=== PATIENT | male | born 1965 | race Caucasian/White ===

== ENCOUNTER 2018-02-03 11:31 | Inpatient (IN) | payer BC ==
--- NOTE | 2018-02-03 11:42 | EDM.PDOC ---
ED HPI GENERAL MEDICAL PROBLEM - General Stated Complaint: [facility] Time Seen by Provider: 02/03/18 11:31 Source of Information: Reports: Patient, EMS History Limitations: Reports: No Limitations - History of Present Illness INITIAL COMMENTS - FREE TEXT/NARRATIVE: A trauma alert was called on this patient. According to EMS, and confirmed by the patient, the patient was bucked off a horse onto packed dirt around 10:45. He landed on his right back. EMS stated that the patient just remained there, that he did not try to get up. His fall was witnessed. There was no loss of consciousness. The patient presents with right back and right shoulder pain. He denies neck pain. He was given Dilaudid 1 mg and Zofran 4 mg en route. The patient does not have a PCP. Right Shoulder Pain Score (Numeric/FACES): 6 - Related Data Allergies Allergy/AdvReac Type Severity Reaction Status Date / Time No Known Allergies Allergy Verified 02/03/18 11:38 Home Meds: Home Meds . [No Known Home Meds] 02/03/18 [History] Past Medical History Cardiovascular History: Reports: Blood Clots/VTE/DVT (following knee arthroscopy ) Endocrine/Metabolic History: Reports: Obesity/BMI 30+ - Past Surgical History GI Surgical History: Reports: Colonoscopy Musculoskeletal Surgical History: Reports: Arthroscopic Knee (right) Social & Family History - Tobacco Use Smoking Status *Q: Never Smoker Tobacco Use Within Last Twelve Months: Smokeless Tobacco (Chews 1/4 can/day) - Alcohol Use Alcohol Use History: Yes Alcohol Use Frequency: Socially - Recreational Drug Use Recreational Drug Use: No - Living Situation & Occupation Living situation: Reports: , with Spouse, with Family (1 son) Occupation: Employed ([employer]) Review of Systems - Review of Systems Review Of Systems: ROS reveals no pertinent complaints other than HPI. ED EXAM, GENERAL - Physical Exam Exam: See Below Exam Limited By: No Limitations General Appearance: Alert, WD/WN, No Apparent Distress (states that the pain medication given by EMS is working well) Eye Exam: Bilateral Eye: EOMI, Normal Inspection Ears: Normal External Exam, Normal Canal, Hearing Grossly Normal, Normal TMs Nose: Normal Inspection, No Blood Throat/Mouth: Normal Inspection, Normal Lips, Normal Voice, No Airway Compromise Head: Atraumatic, Normocephalic Neck: Normal Inspection, Supple, Non-Tender, Full Range of Motion. No: Limited Range of Motion, Lymphadenopathy (L) Respiratory/Chest: No Respiratory Distress, Lungs Clear, Normal Breath Sounds, No Accessory Muscle Use, Other (Visible deformity and ecchymosis to the right mid clavicle.). No: Decreased Breath Sounds, Crackles, Rhonchi, Wheezing, Prolonged Expiration Cardiovascular: Normal Peripheral Pulses, Regular Rate, Rhythm, No Edema, No Gallop, No JVD, No Murmur, No Rub Peripheral Pulses: 4+: Radial (L), Radial (R) GI/Abdominal: Normal Bowel Sounds, Soft, Non-Tender, No Organomegaly, No Distention, No Abnormal Bruit, No Mass, Other (Obese) (Male) Exam: Deferred Rectal (Males) Exam: Deferred Back Exam: Other (No visible abnormality to the patient's back, such as swelling , erythema, ecchymosis, or abrasion, but the patient reports tenderness to palpation to the right upper and mid back. No vertebral spinous process tenderness.) Extremities: Normal Inspection, Normal Range of Motion, Non-Tender, No Pedal Edema, Normal Capillary Refill Neurological: Alert, Oriented, Normal Cognition, No Motor/Sensory Deficits Psychiatric: Normal Affect Skin Exam: Warm, Dry, Intact, Normal Color, No Rash Course - Vital Signs Last Recorded V/S: Last Vital Signs Temp 36.1 C 02/03/18 13:15 Pulse 64 02/03/18 13:15 Resp 12 02/03/18 13:15 BP 122/75 02/03/18 13:15 Pulse Ox 97 02/03/18 13:15 - Orders/Labs/Meds Orders: Active Orders 24 hr Category Date Time Status Chest 1V Frontal [CR] Stat Exams 02/03/18 11:38 Taken Chest w Cont [CT] Stat Exams 02/03/18 11:39 Taken Clavicle Rt [CR] Stat Exams 02/03/18 11:40 Taken Shoulder Comp Rt [CR] Stat Exams 02/03/18 11:39 Taken Sodium Chloride 0.9% [Normal Saline] 1,000 ml Med 02/03/18 11:45 Active IV ASDIRECTED Sodium Chloride 0.9% [Saline Flush] Med 02/03/18 11:51 Active 10 ml FLUSH ONETIME PRN DME for Discharge [COMM] Stat Oth 02/03/18 12:46 Ordered Medication Orders Sodium Chloride (Normal Saline) 1,000 mls @ 150 mls/hr IV ASDIRECTED KRISTOFER Last Admin: 02/03/18 12:12 Dose: 150 mls/hr Sodium Chloride (Normal Saline) 1,000 mls @ 50 mls/hr IV ASDIRECTED [facility] Sodium Chloride (Saline Flush) 10 ml FLUSH ONETIME PRN PRN Reason: IV FLUSH Last Admin: 02/03/18 12:06 Dose: 10 ml Labs: Laboratory Tests 02/03/18 02/03/18 02/03/18 Range/Units 12:25 12:25 12:25 WBC 11.02 H (4.23-9.07) K/mm3 RBC 5.18 (4.63-6.08) M/mm3 Hgb 16.2 (13.7-17.5) gm/L Hct 45.9 (40.1-51.0) % MCV 88.6 (79.0-92.2) fl MCH 31.3 (25.7-32.2) pg MCHC 35.3 (32.2-35.5) g/dl RDW Std Deviation 41.0 (35.1-43.9) fL Plt Count 172 (163-337) K/mm3 MPV 10.2 (9.4-12.3) fl Neutrophils % (Manual) 80 H (40-60) % Band Neutrophils % 0 (0-10) % Lymphocytes % (Manual) 13 L (20-40) % Atypical Lymphs % 0 % Monocytes % (Manual) 5 (2-10) % Eosinophils % (Manual) 2 (0.8-7.0) % Basophils % (Manual) 0 L (0.2-1.2) Platelet Estimate Adequate RBC Morph Comment Normal PT 10.8 (9.5-12.1) SECONDS INR 0.99 APTT 26 (24-31) SECONDS Sodium 140 (136-145) mEq/L Potassium 4.2 (3.5-5.1) mEq/L Chloride 105 (98-107) mEq/L Carbon Dioxide 29 (21-32) mEq/L Anion Gap 10.2 (5-15) BUN 14 (7-18) mg/dL Creatinine 1.0 (0.7-1.3) mg/dL Est Cr Clr Drug Dosing 95.44 mL/min Estimated GFR (MDRD) > 60 (>60) mL/min BUN/Creatinine Ratio 14.0 (14-18) Glucose 131 H (74-106) mg/dL Calcium 8.6 (8.5-10.1) mg/dL Total Bilirubin 0.4 (0.2-1.0) mg/dL AST 42 H (15-37) U/L ALT 46 (16-63) U/L Alkaline Phosphatase 68 (46-116) U/L Total Protein 7.7 (6.4-8.2) g/dl Albumin 3.9 (3.4-5.0) g/dl Globulin 3.8 gm/dL Albumin/Globulin Ratio 1.0 (1-2) Meds: Medications Generic Name Dose Route Start Last Admin Trade Name Freq PRN Reason Stop Dose Admin Sodium Chloride 1,000 mls @ 150 mls/hr 02/03/18 11:45 02/03/18 12:12 Normal Saline IV 150 mls/hr ASDIRECTED KRISTOFER Administration Sodium Chloride 1,000 mls @ 50 mls/hr 02/03/18 14:30 Normal Saline IV ASDIRECTED KRISTOFER Sodium Chloride 10 ml 02/03/18 11:51 02/03/18 12:06 Saline Flush FLUSH 10 ml ONETIME PRN Administration IV FLUSH Discontinued Medications Generic Name Dose Route Start Last Admin Trade Name Freq PRN Reason Stop Dose Admin Hydromorphone HCl 1 mg 02/03/18 12:58 02/03/18 13:11 Dilaudid IVPUSH 02/03/18 12:59 1 mg ONETIME STA Administration Iopamidol 100 ml 02/03/18 11:51 02/03/18 12:06 Isovue-300 (61%) IVPUSH 02/03/18 11:52 100 ml ONETIME ONE Administration - Re-Assessments/Exams Free Text/Narrative Re-Assessment/Exam: 02/03/18 12:09 Portable chest radiograph reviewed. Poor inspiratory effort. Cardiac silhouette is within normal limits. No pulmonary vascular congestion. No pleural effusions. No focal infiltrate. No pneumothorax. Large gastric air bubble. Formal read per the Radiologist pending. 2-view radiographs of the right clavicle appear to demonstrate a comminuted mid- clavicle fracture with some displacement of pieces. The right shoulder appears to be normal. Formal read per the Radiologist pending. 3-view radiographs of the right shoulder appear to be normal. No fracture or dislocation identified. There is a previously identified right comminuted clavicle fracture. Formal read per the Radiologist pending. 02/03/18 12:52 CT of the chest with IV contrast is read by [facility] as: 1. Comminuted displaced right clavicle fracture. 2. Contour abnormality in the right anterior third, fourth, fifth, and sixth ribs consistent with acute fracture. Minimally displaced fracture right posterior second, third, fifth, sixth, seventh ribs displaced right posterior lateral ninth rib fracture. Essentially Nondisplaced right posterior-lateral eighth rib. Minimally displaced right posterior-lateral sixth rib fracture. 3. Minimally displaced fracture of the right transverse process of T5, T6, T7. Possible nondisplaced fracture of the right transverse process of T3. 4. Mild opacities in the lower lobes may represent atelectasis or contusions. 02/03/18 12:[address] Ortega at 12:58. She will come to the ED to evaluate and admit the patient. Departure - Departure Time of Disposition: 13:00 Disposition: Admitted As Inpatient 64 Condition: Fair Clinical Impression: Fall from horse, Right clavicle fracture, Multiple rib fractures involving four or more ribs, Multiple transverse process fractures, Right pulmonary contusion - Discharge Information *PRESCRIPTION DRUG MONITORING PROGRAM REVIEWED*: Not Applicable *COPY OF PRESCRIPTION DRUG MONITORING REPORT IN PATIENT YVONNE: Not Applicable - My Orders Last 24 Hours: My Active Orders 02/03/18 11:38 Chest 1V Frontal [CR] Stat 02/03/18 11:39 Chest w Cont [CT] Stat Shoulder Comp Rt [CR] Stat 02/03/18 11:40 Clavicle Rt [CR] Stat 02/03/18 11:45 Sodium Chloride 0.9% [Normal Saline] 1,000 ml IV ASDIRECTED 02/03/18 11:51 Sodium Chloride 0.9% [Saline Flush] 10 ml FLUSH ONETIME PRN 02/03/18 12:46 DME for Discharge [COMM] Stat - Assessment/Plan Last 24 Hours: My Active Orders 02/03/18 11:38 Chest 1V Frontal [CR] Stat 02/03/18 11:39 Chest w Cont [CT] Stat Shoulder Comp Rt [CR] Stat 02/03/18 11:40 Clavicle Rt [CR] Stat 02/03/18 11:45 Sodium Chloride 0.9% [Normal Saline] 1,000 ml IV ASDIRECTED 02/03/18 11:51 Sodium Chloride 0.9% [Saline Flush] 10 ml FLUSH ONETIME PRN 02/03/18 12:46 DME for Discharge [COMM] Stat
[2018-02-03] MEDS ORDERED: Sodium Chloride 0.9% 1,000 ML IV SCH ×2 (11:45→14:30)
[2018-02-03] MEDS ORDERED: Sodium Chloride 0.9% 10 ML Syringe FLUSH PRN (11:51)
[2018-02-03] MEDS ORDERED: Iopamidol 612 MG/ML 100 ML Bottle IVPUSH ONE (11:51)
[2018-02-03] MEDS ORDERED: HYDROmorphone 0.5 MG/0.5 ML SYRINGE IVPUSH STA (12:58)
[2018-02-03] MEDS ORDERED: HYDROmorphone/Normal Saline 6 MG/30 ML PCA Vial IV PRN (15:48)
[2018-02-03] MEDS ORDERED: Ibuprofen 600 MG Tab PO PRN (15:53)
[2018-02-03] MEDS: Enoxaparin 30 MG/0.3 ML Syringe SUBCUT SCH (17:05)
[2018-02-03] MEDS: Pantoprazole 40 MG Tab.CR PO SCH (17:05)
--- NOTE | 2018-02-03 17:11 | HP ---
DATE OF ADMISSION: 02/03/2018 CHIEF COMPLAINT: Bucked off a horse. HISTORY OF PRESENT ILLNESS: I was asked by the emergency physician to evaluate this very pleasant 52-year- old male after falling off a horse. He was actually bucked off and it was witnessed. He has no loss of consciousness. He fell onto his right side and immediately complained of shoulder pain and back pain. He had no numbness or weakness of his lower extremity, just excruciating pain. He also denied any neck pain, blurred or double vision, abdominal pain, pelvic pain, knee pain, or ankle pain. He also denies any elbow pain or wrist pain. His only complaint is that of his posterior chest wall and his clavicle. The emergency physician and Department did a good workup including a CT scan of the chest and this demonstrates a small pulmonary contusion, multiple rib fractures as to be expected, multiple transverse process fractures as well as a comminuted fracture of the right clavicle. There are no signs of a pneumo. On further inspection of the CT scan, I can appreciate the liver looks fine. I was then asked to evaluate the patient. On my exam, the patient again as stated, but has no other complaints other than what I described above. I then very specifically asked if he had any pain anywhere else and again denied the elbows or wrists, the abdomen, the pelvis. He denied knee or ankle pain and he also denied any other back pain other than what is in the upper back. At one point, he said he had a little bit of numbness of his fingertips, but this has been improving again. PAST MEDICAL HISTORY: ALLERGIES: None. CURRENT MEDICATIONS: None. SURGERIES: Interestingly enough, he had an arthroscopic evaluation of the knee and subsequently developed a DVT for which he was on anticoagulations for over several months, this was about 10 years ago. SOCIAL HISTORY: Smoking negative, but he does chew. Alcohol, social. 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 REVIEW OF SYSTEMS: Otherwise, he is healthy. No seizures, strokes. No difficulty swallowing. He denies thyroid, diabetes, or hepatitis. No prior history of shortness of breath or cough or chest pain or abdominal pain or change in bowel habits. PHYSICAL EXAMINATION: GENERAL: I have now evaluated the patient on multiple occasions in the emergency department and now an hour and a half later, I evaluated him my 3rd time. The patient again is resting comfortably. He is totally awake and alert and oriented. HEENT: There is no mid face tenderness. Pupils are equal and round. Tympanic membranes are clear. There is negative Perez's. There is no tenderness of the cervical spine either to flexion, extension, or turning to the right and the left. There is a hematoma about the right clavicle, but no thrill or bruit. LUNGS: Clear bilaterally, although there is tenderness on the posterior chest wall. There is no anterior chest subcutaneous air. HEART: Rhythm is regular. ABDOMEN: Totally soft, nontender. Pelvis is stable. MUSCULOSKELETAL: There is no tenderness of the calves, knees, ankles, elbows, or wrists. There are bounding radial pulses bilaterally and bounding pulses of the dorsalis pedis. I simply slid my hand behind where the tenderness of his upper back. I have reviewed the CT scan report as well as the films themselves. IMPRESSION AND PLAN: 1. Multiple right rib fractures with minimal displacement. 2. Right pulmonary contusion. 3. Transverse process fractures. 4. Right clavicle fracture. The biggest concern will be that he will actually need pain control for these multiple injuries. I will start him on a Dilaudid DIAMOND POWDER MIXER and also is going to convert him to multiple anti-inflammatories. Prophylaxis will be given for peptic ulcer disease. For clavicle fracture, orthopedics will be consulted on Monday. In the meantime, we will stable it with a sling. Transverse process fractures will be treated with local care only. I had the opportunity to discuss with the family. We are also going to start DVT prophylaxis because of his prior history. He will also be put on SCDs. OT and PT will be initiated and we will see how we can monitor the pain control. The family was offered transfer and they declined and will wish to stay here. MMODAL /[id number]
[2018-02-03] MEDS ORDERED: Ondansetron 4 MG in Sodium Chloride 0.9% 50 ML IV PRN (17:15)
[2018-02-03] MEDS ORDERED: Ondansetron 4 MG/2 ML SDV IVPUSH PRN (17:18)
[2018-02-03] MEDS: Morphine PF 30 MG/30 ML PCA Vial IV PRN (17:25)
[2018-02-03] MEDS ORDERED: Naloxone 0.4 MG/ML SDV IVPUSH PRN (19:44)
[2018-02-03] MEDS: Ibuprofen 600 MG Tab PO SCH (20:29)
[2018-02-04] MEDS: Ibuprofen 600 MG Tab PO SCH ×3 (04:03→21:39)
[2018-02-04] MEDS: Enoxaparin 30 MG/0.3 ML Syringe SUBCUT SCH ×2 (04:04→16:40)
[2018-02-04] MEDS: Pantoprazole 40 MG Tab.CR PO SCH (09:25)
[2018-02-04] MEDS ORDERED: Acetaminophen Soln 650 MG/20.3 ML UD Cup PO PRN (09:48)
--- NOTE | 2018-02-04 10:12 | PCM.PN ---
- General Info Date of Service: 02/03/18 - Patient Data Vitals - Most Recent: Last Vital Signs Temp 97.7 F 02/04/18 08:16 Pulse 52 L 02/04/18 08:16 Resp 16 02/04/18 08:16 BP 122/73 02/04/18 08:16 Pulse Ox 95 02/04/18 08:16 Weight - Most Recent: 236 lb 9.6 oz I&O - Last 24 Hours: Intake & Output 02/03/18 02/04/18 02/04/18 22:59 06:59 14:59 Intake Total 50 1526 Output Total 750 Balance 50 776 Lab Results Last 24 Hours: Laboratory Results - last 24 hr 02/03/18 02/03/18 02/03/18 Range/Units 12:25 12:25 12:25 WBC 11.02 H (4.23-9.07) K/mm3 RBC 5.18 (4.63-6.08) M/mm3 Hgb 16.2 (13.7-17.5) gm/L Hct 45.9 (40.1-51.0) % MCV 88.6 (79.0-92.2) fl MCH 31.3 (25.7-32.2) pg MCHC 35.3 (32.2-35.5) g/dl RDW Std Deviation 41.0 (35.1-43.9) fL Plt Count 172 (163-337) K/mm3 MPV 10.2 (9.4-12.3) fl Neut % (Auto) (34.0-67.9) % Lymph % (Auto) (21.8-53.1) % [place] % (Auto) (5.3-12.2) % Eos % (Auto) (0.8-7.0) Baso % (Auto) (0.1-1.2) % Neut # (Auto) (1.78-5.38) K/mm3 Lymph # (Auto) (1.32-3.57) K/mm3 [place] # (Auto) (0.30-0.82) K/mm3 Eos # (Auto) (0.04-0.54) K/mm3 Baso # (Auto) (0.01-0.08) K/mm3 Neutrophils % (Manual) 80 H (40-60) % Band Neutrophils % 0 (0-10) % Lymphocytes % (Manual) 13 L (20-40) % Atypical Lymphs % 0 % Monocytes % (Manual) 5 (2-10) % Eosinophils % (Manual) 2 (0.8-7.0) % Basophils % (Manual) 0 L (0.2-1.2) Platelet Estimate Adequate RBC Morph Comment Normal PT 10.8 (9.5-12.1) SECONDS INR 0.99 APTT 26 (24-31) SECONDS Sodium 140 (136-145) mEq/L Potassium 4.2 (3.5-5.1) mEq/L Chloride 105 (98-107) mEq/L Carbon Dioxide 29 (21-32) mEq/L Anion Gap 10.2 (5-15) BUN 14 (7-18) mg/dL Creatinine 1.0 (0.7-1.3) mg/dL Est Cr Clr Drug Dosing 95.44 mL/min Estimated GFR (MDRD) > 60 (>60) mL/min BUN/Creatinine Ratio 14.0 (14-18) Glucose 131 H (74-106) mg/dL Calcium 8.6 (8.5-10.1) mg/dL Total Bilirubin 0.4 (0.2-1.0) mg/dL AST 42 H (15-37) U/L ALT 46 (16-63) U/L Alkaline Phosphatase 68 (46-116) U/L Total Protein 7.7 (6.4-8.2) g/dl Albumin 3.9 (3.4-5.0) g/dl Globulin 3.8 gm/dL Albumin/Globulin Ratio 1.0 (1-2) 02/04/18 Range/Units 06:35 WBC 6.07 (4.23-9.07) K/mm3 RBC 4.62 L (4.63-6.08) M/mm3 Hgb 14.7 (13.7-17.5) gm/L Hct 41.6 (40.1-51.0) % MCV 90.0 (79.0-92.2) fl MCH 31.8 (25.7-32.2) pg MCHC 35.3 (32.2-35.5) g/dl RDW Std Deviation 42.1 (35.1-43.9) fL Plt Count 165 (163-337) K/mm3 MPV 10.4 (9.4-12.3) fl Neut % (Auto) 67.4 (34.0-67.9) % Lymph % (Auto) 20.8 L (21.8-53.1) % [place] % (Auto) 10.4 (5.3-12.2) % Eos % (Auto) 1.0 (0.8-7.0) Baso % (Auto) 0.2 (0.1-1.2) % Neut # (Auto) 4.10 (1.78-5.38) K/mm3 Lymph # (Auto) 1.26 L (1.32-3.57) K/mm3 [place] # (Auto) 0.63 (0.30-0.82) K/mm3 Eos # (Auto) 0.06 (0.04-0.54) K/mm3 Baso # (Auto) 0.01 (0.01-0.08) K/mm3 Neutrophils % (Manual) (40-60) % Band Neutrophils % (0-10) % Lymphocytes % (Manual) (20-40) % Atypical Lymphs % % Monocytes % (Manual) (2-10) % Eosinophils % (Manual) (0.8-7.0) % Basophils % (Manual) (0.2-1.2) Platelet Estimate RBC Morph Comment PT (9.5-12.1) SECONDS INR APTT (24-31) SECONDS Sodium (136-145) mEq/L Potassium (3.5-5.1) mEq/L Chloride (98-107) mEq/L Carbon Dioxide (21-32) mEq/L Anion Gap (5-15) BUN (7-18) mg/dL Creatinine (0.7-1.3) mg/dL Est Cr Clr Drug Dosing mL/min Estimated GFR (MDRD) (>60) mL/min BUN/Creatinine Ratio (14-18) Glucose (74-106) mg/dL Calcium (8.5-10.1) mg/dL Total Bilirubin (0.2-1.0) mg/dL AST (15-37) U/L ALT (16-63) U/L Alkaline Phosphatase (46-116) U/L Total Protein (6.4-8.2) g/dl Albumin (3.4-5.0) g/dl Globulin gm/dL Albumin/Globulin Ratio (1-2) Med Orders - Current: Current Medications Acetaminophen (Tylenol) 650 mg PO Q6H PRN PRN Reason: Pain Enoxaparin Sodium (Lovenox) 30 mg SUBCUT Q12H [facility] Last Admin: 02/04/18 04:04 Dose: 30 mg Sodium Chloride (Normal Saline) 1,000 mls @ 50 mls/hr IV ASDIRECTED [facility] Last Admin: 02/04/18 04:06 Dose: 50 mls/hr Ibuprofen (Motrin) 600 mg PO Q8H [facility] Last Admin: 02/04/18 04:03 Dose: 600 mg Morphine Sulfate (Morphine Warehouse Logistics Manager 30 Mg In 30 Ml) 30 mg IV DAILY PRN; Protocol PRN Reason: Pain Last Admin: 02/03/18 17:25 Dose: 30 mg Naloxone HCl (Narcan) 0.4 mg IVPUSH ASDIRECTED PRN PRN Reason: Oversedation Ondansetron HCl (Zofran) 4 mg IVPUSH Q8H PRN PRN Reason: N/V Pantoprazole Sodium (Protonix) 40 mg PO DAILY [facility] Last Admin: 02/04/18 09:25 Dose: 40 mg Sodium Chloride (Saline Flush) 10 ml FLUSH ONETIME PRN PRN Reason: IV FLUSH Last Admin: 02/03/18 12:06 Dose: 10 ml Discontinued Medications Hydromorphone HCl (Dilaudid) 1 mg IVPUSH ONETIME STA Stop: 02/03/18 12:59 Last Admin: 02/03/18 13:11 Dose: 1 mg Hydromorphone HCl (Dilaudid Warehouse Logistics Manager 6 Mg In Ns 30 Ml) 6 mg IV ASDIRECTED PRN; Protocol PRN Reason: Pain (severe 7-10) Sodium Chloride (Normal Saline) 1,000 mls @ 150 mls/hr IV ASDIRECTED [facility] Last Admin: 02/03/18 12:12 Dose: 150 mls/hr Ondansetron HCl 4 mg/ Sodium (Chloride) 52 mls @ 100 mls/hr IV Q8H PRN PRN Reason: Nausea Ibuprofen (Motrin) 600 mg PO Q8H PRN PRN Reason: Pain Iopamidol (Isovue-300 (61%)) 100 ml IVPUSH ONETIME ONE Stop: 02/03/18 11:52 Last Admin: 02/03/18 12:06 Dose: 100 ml - Problem List Review Problem List Initiated/Reviewed/Updated: Yes - My Orders Last 24 Hours: My Active Orders 02/03/18 14:12 Patient Status [ADT] Routine 02/03/18 14:30 Sodium Chloride 0.9% [Normal Saline] 1,000 ml IV ASDIRECTED 02/03/18 15:55 Activity as Tolerated [RC] .Routine SCD [Sequential Compression Device] [OM.PC] Routine 02/03/18 15:56 RT Incentive Spirometry [RC] Q1HWA 02/03/18 16:00 Enoxaparin [Lovenox] 30 mg SUBCUT Q12H Pantoprazole [ProTONIX] 40 mg PO DAILY 02/03/18 16:16 Resuscitation Status Routine 02/03/18 16:58 Consult to Physician [CONS] Routine 02/03/18 17:01 Notify Provider Consults [RC] ASDIRECTED 02/03/18 17:12 Morphine PF [Morphine THERAPEUTIC RECREATION ASSISTANT 30 MG in 30 ML] 30 mg IV DAILY PRN 02/03/18 17:18 Ondansetron [Zofran] 4 mg IVPUSH Q8H PRN 02/03/18 19:44 Naloxone [Narcan] 0.4 mg IVPUSH ASDIRECTED PRN Pulse Oximetry Continuous Monitoring [OM.PC] Routine 02/03/18 20:00 Ibuprofen [Motrin] 600 mg PO Q8H 02/03/18 23:28 Oxygen Therapy Adult [Oxygen Therapy] [RC] ASDIRECTED 02/03/18 Dinner Regular Diet [DIET] 02/04/18 08:00 Chest 1V Frontal [CR] Routine 02/04/18 09:48 Acetaminophen [Tylenol] 650 mg PO Q6H PRN
--- NOTE | 2018-02-04 10:48 | PCM.PN ---
- General Info Date of Service: 02/04/18 Functional Status: Reports: Pain Controlled - Review of Systems HEENT: Reports: No Symptoms Pulmonary: Reports: Other Cardiovascular: Reports: No Symptoms Gastrointestinal: Reports: No Symptoms Genitourinary: Reports: No Symptoms Musculoskeletal: Reports: Shoulder Pain Skin: Reports: No Symptoms Neurological: Reports: Other Psychiatric: Reports: No Symptoms - Patient Data Vitals - Most Recent: Last Vital Signs Temp 97.7 F 02/04/18 08:16 Pulse 52 L 02/04/18 08:16 Resp 16 02/04/18 08:16 BP 122/73 02/04/18 08:16 Pulse Ox 95 02/04/18 08:16 Weight - Most Recent: 236 lb 9.6 oz I&O - Last 24 Hours: Intake & Output 02/03/18 02/04/18 02/04/18 22:59 06:59 14:59 Intake Total 50 1526 Output Total 750 Balance 50 776 Lab Results Last 24 Hours: Laboratory Results - last 24 hr 02/03/18 02/03/18 02/03/18 Range/Units 12:25 12:25 12:25 WBC 11.02 H (4.23-9.07) K/mm3 RBC 5.18 (4.63-6.08) M/mm3 Hgb 16.2 (13.7-17.5) gm/L Hct 45.9 (40.1-51.0) % MCV 88.6 (79.0-92.2) fl MCH 31.3 (25.7-32.2) pg MCHC 35.3 (32.2-35.5) g/dl RDW Std Deviation 41.0 (35.1-43.9) fL Plt Count 172 (163-337) K/mm3 MPV 10.2 (9.4-12.3) fl Neut % (Auto) (34.0-67.9) % Lymph % (Auto) (21.8-53.1) % [place] % (Auto) (5.3-12.2) % Eos % (Auto) (0.8-7.0) Baso % (Auto) (0.1-1.2) % Neut # (Auto) (1.78-5.38) K/mm3 Lymph # (Auto) (1.32-3.57) K/mm3 [place] # (Auto) (0.30-0.82) K/mm3 Eos # (Auto) (0.04-0.54) K/mm3 Baso # (Auto) (0.01-0.08) K/mm3 Neutrophils % (Manual) 80 H (40-60) % Band Neutrophils % 0 (0-10) % Lymphocytes % (Manual) 13 L (20-40) % Atypical Lymphs % 0 % Monocytes % (Manual) 5 (2-10) % Eosinophils % (Manual) 2 (0.8-7.0) % Basophils % (Manual) 0 L (0.2-1.2) Platelet Estimate Adequate RBC Morph Comment Normal PT 10.8 (9.5-12.1) SECONDS INR 0.99 APTT 26 (24-31) SECONDS Sodium 140 (136-145) mEq/L Potassium 4.2 (3.5-5.1) mEq/L Chloride 105 (98-107) mEq/L Carbon Dioxide 29 (21-32) mEq/L Anion Gap 10.2 (5-15) BUN 14 (7-18) mg/dL Creatinine 1.0 (0.7-1.3) mg/dL Est Cr Clr Drug Dosing 95.44 mL/min Estimated GFR (MDRD) > 60 (>60) mL/min BUN/Creatinine Ratio 14.0 (14-18) Glucose 131 H (74-106) mg/dL Calcium 8.6 (8.5-10.1) mg/dL Total Bilirubin 0.4 (0.2-1.0) mg/dL AST 42 H (15-37) U/L ALT 46 (16-63) U/L Alkaline Phosphatase 68 (46-116) U/L Total Protein 7.7 (6.4-8.2) g/dl Albumin 3.9 (3.4-5.0) g/dl Globulin 3.8 gm/dL Albumin/Globulin Ratio 1.0 (1-2) 02/04/18 Range/Units 06:35 WBC 6.07 (4.23-9.07) K/mm3 RBC 4.62 L (4.63-6.08) M/mm3 Hgb 14.7 (13.7-17.5) gm/L Hct 41.6 (40.1-51.0) % MCV 90.0 (79.0-92.2) fl MCH 31.8 (25.7-32.2) pg MCHC 35.3 (32.2-35.5) g/dl RDW Std Deviation 42.1 (35.1-43.9) fL Plt Count 165 (163-337) K/mm3 MPV 10.4 (9.4-12.3) fl Neut % (Auto) 67.4 (34.0-67.9) % Lymph % (Auto) 20.8 L (21.8-53.1) % Brewster % (Auto) 10.4 (5.3-12.2) % Eos % (Auto) 1.0 (0.8-7.0) Baso % (Auto) 0.2 (0.1-1.2) % Neut # (Auto) 4.10 (1.78-5.38) K/mm3 Lymph # (Auto) 1.26 L (1.32-3.57) K/mm3 [place] # (Auto) 0.63 (0.30-0.82) K/mm3 Eos # (Auto) 0.06 (0.04-0.54) K/mm3 Baso # (Auto) 0.01 (0.01-0.08) K/mm3 Neutrophils % (Manual) (40-60) % Band Neutrophils % (0-10) % Lymphocytes % (Manual) (20-40) % Atypical Lymphs % % Monocytes % (Manual) (2-10) % Eosinophils % (Manual) (0.8-7.0) % Basophils % (Manual) (0.2-1.2) Platelet Estimate RBC Morph Comment PT (9.5-12.1) SECONDS INR APTT (24-31) SECONDS Sodium (136-145) mEq/L Potassium (3.5-5.1) mEq/L Chloride (98-107) mEq/L Carbon Dioxide (21-32) mEq/L Anion Gap (5-15) BUN (7-18) mg/dL Creatinine (0.7-1.3) mg/dL Est Cr Clr Drug Dosing mL/min Estimated GFR (MDRD) (>60) mL/min BUN/Creatinine Ratio (14-18) Glucose (74-106) mg/dL Calcium (8.5-10.1) mg/dL Total Bilirubin (0.2-1.0) mg/dL AST (15-37) U/L ALT (16-63) U/L Alkaline Phosphatase (46-116) U/L Total Protein (6.4-8.2) g/dl Albumin (3.4-5.0) g/dl Globulin gm/dL Albumin/Globulin Ratio (1-2) Med Orders - Current: Current Medications Acetaminophen (Tylenol) 650 mg PO Q6H PRN PRN Reason: Pain Enoxaparin Sodium (Lovenox) 30 mg SUBCUT Q12H [facility] Last Admin: 02/04/18 04:04 Dose: 30 mg Sodium Chloride (Normal Saline) 1,000 mls @ 50 mls/hr IV ASDIRECTED [facility] Last Admin: 02/04/18 04:06 Dose: 50 mls/hr Ibuprofen (Motrin) 600 mg PO Q8H [facility] Last Admin: 02/04/18 04:03 Dose: 600 mg Morphine Sulfate (Morphine Middle School Football Coach 30 Mg In 30 Ml) 30 mg IV DAILY PRN; Protocol PRN Reason: Pain Last Admin: 02/03/18 17:25 Dose: 30 mg Naloxone HCl (Narcan) 0.4 mg IVPUSH ASDIRECTED PRN PRN Reason: Oversedation Ondansetron HCl (Zofran) 4 mg IVPUSH Q8H PRN PRN Reason: N/V Pantoprazole Sodium (Protonix) 40 mg PO DAILY [facility] Last Admin: 02/04/18 09:25 Dose: 40 mg Sodium Chloride (Saline Flush) 10 ml FLUSH ONETIME PRN PRN Reason: IV FLUSH Last Admin: 02/03/18 12:06 Dose: 10 ml Discontinued Medications Hydromorphone HCl (Dilaudid) 1 mg IVPUSH ONETIME STA Stop: 02/03/18 12:59 Last Admin: 02/03/18 13:11 Dose: 1 mg Hydromorphone HCl (Dilaudid Middle School Football Coach 6 Mg In Ns 30 Ml) 6 mg IV ASDIRECTED PRN; Protocol PRN Reason: Pain (severe 7-10) Sodium Chloride (Normal Saline) 1,000 mls @ 150 mls/hr IV ASDIRECTED [facility] Last Admin: 02/03/18 12:12 Dose: 150 mls/hr Ondansetron HCl 4 mg/ Sodium (Chloride) 52 mls @ 100 mls/hr IV Q8H PRN PRN Reason: Nausea Ibuprofen (Motrin) 600 mg PO Q8H PRN PRN Reason: Pain Iopamidol (Isovue-300 (61%)) 100 ml IVPUSH ONETIME ONE Stop: 02/03/18 11:52 Last Admin: 02/03/18 12:06 Dose: 100 ml Comments:: Patient had a relatively comfortable night. He denied any new areas of discomfort. Only pain of the rt shoulder and mid back no sob sat are above 90% on room air. PE Sitting up in bed Back---nontender in the mid point no subcut air no increase in size of the rt hematoma around the clavicle lung--good breath sounds bilaterally abd --soft lab--wbc normal cbc ok chest xray pending IMP overall improving s/p fall from a horse PLAN 1--Clavicle--ortho to see in the am 2--rib fx--cont with pulm toilet 3-transverse process fx--cont with increasing activity 4- pain controll--add tylenol cont with the morphine for now 5 --dvt proph-cont 6 PUD proph--cont OT/PT in the am oob with help today overall improving with no new injuries identified at this time. Dr. Ortega - Problem List Review Problem List Initiated/Reviewed/Updated: Yes - My Orders Last 24 Hours: My Active Orders 02/03/18 14:12 Patient Status [ADT] Routine 02/03/18 14:30 Sodium Chloride 0.9% [Normal Saline] 1,000 ml IV ASDIRECTED 02/03/18 15:55 Activity as Tolerated [RC] .Routine SCD [Sequential Compression Device] [OM.PC] Routine 02/03/18 15:56 RT Incentive Spirometry [RC] Q1HWA 02/03/18 16:00 Enoxaparin [Lovenox] 30 mg SUBCUT Q12H Pantoprazole [ProTONIX] 40 mg PO DAILY 02/03/18 16:16 Resuscitation Status Routine 02/03/18 16:58 Consult to Physician [CONS] Routine 02/03/18 17:01 Notify Provider Consults [RC] ASDIRECTED 02/03/18 17:12 Morphine PF [Morphine INSPECTOR TECHNICIAN 30 MG in 30 ML] 30 mg IV DAILY PRN 02/03/18 17:18 Ondansetron [Zofran] 4 mg IVPUSH Q8H PRN 02/03/18 19:44 Naloxone [Narcan] 0.4 mg IVPUSH ASDIRECTED PRN Pulse Oximetry Continuous Monitoring [OM.PC] Routine 02/03/18 20:00 Ibuprofen [Motrin] 600 mg PO Q8H 02/03/18 23:28 Oxygen Therapy Adult [Oxygen Therapy] [RC] ASDIRECTED 02/03/18 Dinner Regular Diet [DIET] 02/04/18 08:00 Chest 1V Frontal [CR] Routine 02/04/18 09:48 Acetaminophen [Tylenol] 650 mg PO Q6H PRN
[2018-02-04] MEDS ORDERED: Acetaminophen 325 MG Tab PO PRN (16:31)
[2018-02-04] MEDS ORDERED: Sodium Chloride 0.9% 1,000 ML IV SCH (18:00)
[2018-02-05] MEDS: Ibuprofen 600 MG Tab PO SCH (04:17)
[2018-02-05] MEDS: Enoxaparin 30 MG/0.3 ML Syringe SUBCUT SCH ×2 (04:17→16:36)
[2018-02-05] MEDS: Pantoprazole 40 MG Tab.CR PO SCH (08:40)
[2018-02-05] MEDS ORDERED: Acetaminophen/HYDROcodone 325-10 MG Tab PO PRN (08:51)
[2018-02-05] MEDS ORDERED: Acetaminophen 325 MG Tab PO PRN (08:52)
--- NOTE | 2018-02-05 09:05 | PCM.PN ---
- General Info Date of Service: 02/05/18 - Patient Data Vitals - Most Recent: Last Vital Signs Temp 98.1 F 02/04/18 21:43 Pulse 64 02/05/18 04:20 Resp 18 02/05/18 04:20 BP 126/67 02/05/18 04:20 Pulse Ox 96 02/05/18 04:20 Weight - Most Recent: 236 lb 9.6 oz I&O - Last 24 Hours: Intake & Output 02/04/18 02/05/18 02/05/18 22:59 06:59 14:59 Intake Total 400 200 Output Total 550 450 Balance -150 -250 Med Orders - Current: Current Medications Acetaminophen (Tylenol) 325 mg PO Q4H PRN PRN Reason: Pain Hydrocodone Bitart/Acetaminophen ([place] 325-10 Mg) 1 - 2 tab PO Q6H PRN PRN Reason: Pain Enoxaparin Sodium (Lovenox) 30 mg SUBCUT Q12H [facility] Last Admin: 02/05/18 04:17 Dose: 30 mg Sodium Chloride (Normal Saline) 1,000 mls @ 20 mls/hr IV ASDIRECTED [facility] Morphine Sulfate (Morphine Loom Inspector 30 Mg In 30 Ml) 30 mg IV DAILY PRN; Protocol PRN Reason: Pain Last Admin: 02/03/18 17:25 Dose: 30 mg Naloxone HCl (Narcan) 0.4 mg IVPUSH ASDIRECTED PRN PRN Reason: Oversedation Ondansetron HCl (Zofran) 4 mg IVPUSH Q8H PRN PRN Reason: N/V Pantoprazole Sodium (Protonix) 40 mg PO DAILY [facility] Last Admin: 02/04/18 09:25 Dose: 40 mg Sodium Chloride (Saline Flush) 10 ml FLUSH ONETIME PRN PRN Reason: IV FLUSH Last Admin: 02/03/18 12:06 Dose: 10 ml Discontinued Medications Acetaminophen (Tylenol) 650 mg PO Q6H PRN PRN Reason: Pain Last Admin: 02/04/18 14:45 Dose: 650 mg Acetaminophen (Tylenol) 650 mg PO Q6H PRN PRN Reason: Pain Hydrocodone Bitart/Acetaminophen ([place] 325-10 Mg) 2 tab PO Q6H PRN PRN Reason: Pain Hydromorphone HCl (Dilaudid) 1 mg IVPUSH ONETIME STA Stop: 02/03/18 12:59 Last Admin: 02/03/18 13:11 Dose: 1 mg Hydromorphone HCl (Dilaudid Loom Inspector 6 Mg In Ns 30 Ml) 6 mg IV ASDIRECTED PRN; Protocol PRN Reason: Pain (severe 7-10) Sodium Chloride (Normal Saline) 1,000 mls @ 150 mls/hr IV ASDIRECTED [facility] Last Admin: 02/03/18 12:12 Dose: 150 mls/hr Sodium Chloride (Normal Saline) 1,000 mls @ 50 mls/hr IV ASDIRECTED [facility] Last Admin: 02/04/18 04:06 Dose: 50 mls/hr Ondansetron HCl 4 mg/ Sodium (Chloride) 52 mls @ 100 mls/hr IV Q8H PRN PRN Reason: Nausea Ibuprofen (Motrin) 600 mg PO Q8H PRN PRN Reason: Pain Ibuprofen (Motrin) 600 mg PO Q8H [facility] Last Admin: 02/05/18 04:17 Dose: 600 mg Iopamidol (Isovue-300 (61%)) 100 ml IVPUSH ONETIME ONE Stop: 02/03/18 11:52 Last Admin: 02/03/18 12:06 Dose: 100 ml - Problem List Review Problem List Initiated/Reviewed/Updated: Yes - My Orders Last 24 Hours: My Active Orders 02/04/18 08:00 Chest 1V Frontal [CR] Routine 02/04/18 18:00 Sodium Chloride 0.9% [Normal Saline] 1,000 ml IV ASDIRECTED 02/05/18 08:52 Acetaminophen [Tylenol] 325 mg PO Q4H PRN 02/05/18 08:54 OT Evaluation and Treatment [CONS] Routine Acetaminophen/HYDROcodone [[place] 325-10 MG] 1 - 2 tab PO Q6H PRN 02/05/18 08:55 PT Evaluation and Treatment [CONS] Routine - Assessment Assessment:: MR. Daley had a better night although most of his complaint is related to the intermittent tingling/numbness of his rt hand no sob the rib pain is "ok" but still difficult to move PE lung--bilateral bs with slight decrease in the rt base. chest wall--no ecch on the back or the chest decrease in the rt clavicle swelling vss eating discussed with Dr. Baptiste IMP steady progress will add norco to try to decrease the use of the morphine will monitor the tylenol intake discontinue the motrin ot/pt cont with the lovenox and the pud proph overall improving awaiting decision if surgery will be needed on the clavicle discussed with his and the patient thank you time 14 minutes
[2018-02-05] MEDS: Acetaminophen/HYDROcodone 325-10 MG Tab PO PRN (16:35)
--- NOTE | 2018-02-05 19:39 | CT ---
CT chest Technique: Multiple axial sections were obtained from above the lung apices inferiorly through the lung bases. Intravenous contrast was utilized. Comparison: Prior chest x-ray performed earlier the same day (11:42 AM) Findings: Mediastinum and hilar regions appear within normal limits. Opacified great vessels appear within normal limits. No pericardial thickening is seen. Small portion of the visualized upper abdominal structures are within normal limits. Lungs show slight dependent atelectasis posteriorly. Lungs otherwise are clear without acute parenchymal change. No pleural effusions or pneumothorax is seen. Right clavicle fracture seen which is slightly comminuted. Six right-sided rib fractures are seen. Several ribs show fractures in both anterior and posterior locations. Minimal displacement seen of the sixth rib. No left-sided rib fracture is seen. Fractures are identified within the transverse process of T5, T6 and T7 and equivocally within T3. No additional thoracic spine fracture is seen. Minimal amount of air seen within the right chest wall in the area of rib fractures is noted. Impression: 1. Multiple right-sided rib fractures on the right side. Right clavicle fracture is noted. Several right-sided transverse process fractures within the thoracic spine 2. Small amount of air within the right chest wall in the area of rib fractures is noted. No pneumothorax is seen. 3. No additional abnormality is seen on CT study of the chest. Diagnostic code #3 I agree with preliminary report issued by [facility] ([facility] report finalized on 02/03/18, 1:34 PM Central Time
--- NOTE | 2018-02-05 19:39 | CR ---
Right shoulder: Three views of the right shoulder were obtained. Comparison: No prior right shoulder study. Comminuted and mildly displaced clavicle fracture again seen. Fracture is noted within the fourth right rib. Glenohumeral joint and acromioclavicular joint appears within normal limits. Impression: 1. Clavicle fracture. Nondisplaced right-sided rib fracture. 2. Right shoulder study is otherwise unremarkable. Diagnostic code #3
--- NOTE | 2018-02-05 19:39 | CR ---
Right clavicle: Two views of the right clavicle were obtained. Comparison: Prior chest x-ray performed earlier on the same day. Fracture is identified within the shaft of the clavicle with mild comminution and mild displacement. Acromioclavicular joint appears aligned. No additional abnormality is seen. Impression: 1. Slightly comminuted and displaced clavicle fracture. Diagnostic code #3
--- NOTE | 2018-02-05 19:39 | CR ---
Chest: Portable view of the chest was obtained. Comparison: No prior chest x-ray. Heart size and mediastinum are normal. Lungs are clear. Slightly comminuted right clavicle fracture is noted. No additional bony abnormality is appreciated. Impression: 1. Right clavicle fracture. Nothing acute is otherwise seen on portable chest x-ray. Diagnostic code #3
[2018-02-05] MEDS: Morphine PF 30 MG/30 ML PCA Vial IV PRN (21:54)
[2018-02-06] MEDS: Enoxaparin 30 MG/0.3 ML Syringe SUBCUT SCH ×2 (03:23→16:04)
[2018-02-06] MEDS: Pantoprazole 40 MG Tab.CR PO SCH (09:08)
--- NOTE | 2018-02-06 09:25 | PCM.PN ---
- General Info Date of Service: 02/06/18 - Patient Data Vitals - Most Recent: Last Vital Signs Temp 98.2 F 02/06/18 03:29 Pulse 60 02/06/18 03:29 Resp 18 02/06/18 03:29 BP 126/72 02/06/18 03:29 Pulse Ox 94 L 02/06/18 07:01 Weight - Most Recent: 234 lb 8 oz I&O - Last 24 Hours: Intake & Output 02/05/18 02/06/18 02/06/18 22:59 06:59 14:59 Intake Total 550 200 Output Total 900 600 Balance -350 -400 Med Orders - Current: Current Medications Acetaminophen (Tylenol) 325 mg PO Q4H PRN PRN Reason: Pain Hydrocodone Bitart/Acetaminophen ([place] 325-10 Mg) 1 - 2 tab PO Q6H PRN PRN Reason: Pain Last Admin: 02/05/18 16:35 Dose: 1 tab Enoxaparin Sodium (Lovenox) 30 mg SUBCUT Q12H [facility] Last Admin: 02/06/18 03:23 Dose: 30 mg Naloxone HCl (Narcan) 0.4 mg IVPUSH ASDIRECTED PRN PRN Reason: Oversedation Ondansetron HCl (Zofran) 4 mg IVPUSH Q8H PRN PRN Reason: N/V Pantoprazole Sodium (Protonix) 40 mg PO DAILY [facility] Last Admin: 02/06/18 09:08 Dose: 40 mg Discontinued Medications Acetaminophen (Tylenol) 650 mg PO Q6H PRN PRN Reason: Pain Last Admin: 02/04/18 14:45 Dose: 650 mg Acetaminophen (Tylenol) 650 mg PO Q6H PRN PRN Reason: Pain Hydrocodone Bitart/Acetaminophen ([place] 325-10 Mg) 2 tab PO Q6H PRN PRN Reason: Pain Hydromorphone HCl (Dilaudid) 1 mg IVPUSH ONETIME STA Stop: 02/03/18 12:59 Last Admin: 02/03/18 13:11 Dose: 1 mg Hydromorphone HCl (Dilaudid Vocational Technical Education Teacher 6 Mg In Ns 30 Ml) 6 mg IV ASDIRECTED PRN; Protocol PRN Reason: Pain (severe 7-10) Sodium Chloride (Normal Saline) 1,000 mls @ 150 mls/hr IV ASDIRECTED [facility] Last Admin: 02/03/18 12:12 Dose: 150 mls/hr Sodium Chloride (Normal Saline) 1,000 mls @ 50 mls/hr IV ASDIRECTED [facility] Last Admin: 02/04/18 04:06 Dose: 50 mls/hr Ondansetron HCl 4 mg/ Sodium (Chloride) 52 mls @ 100 mls/hr IV Q8H PRN PRN Reason: Nausea Sodium Chloride (Normal Saline) 1,000 mls @ 20 mls/hr IV ASDIRECTED [facility] Last Admin: 02/05/18 08:58 Dose: 20 mls/hr Ibuprofen (Motrin) 600 mg PO Q8H PRN PRN Reason: Pain Ibuprofen (Motrin) 600 mg PO Q8H [facility] Last Admin: 02/05/18 04:17 Dose: 600 mg Iopamidol (Isovue-300 (61%)) 100 ml IVPUSH ONETIME ONE Stop: 02/03/18 11:52 Last Admin: 02/03/18 12:06 Dose: 100 ml Morphine Sulfate (Morphine Vocational Technical Education Teacher 30 Mg In 30 Ml) 30 mg IV DAILY PRN; Protocol PRN Reason: Pain Last Admin: 02/05/18 21:54 Dose: 30 mg Sodium Chloride (Saline Flush) 10 ml FLUSH ONETIME PRN PRN Reason: IV FLUSH Last Admin: 02/03/18 12:06 Dose: 10 ml - Problem List Review Problem List Initiated/Reviewed/Updated: Yes - My Orders Last 24 Hours: My Active Orders 02/05/18 08:52 Acetaminophen [Tylenol] 325 mg PO Q4H PRN 02/05/18 08:54 OT Evaluation and Treatment [CONS] Routine Acetaminophen/HYDROcodone [[place] 325-10 MG] 1 - 2 tab PO Q6H PRN 02/05/18 08:55 PT Evaluation and Treatment [CONS] Routine - Assessment Assessment:: MR. Daley had a better night although most of his complaint is related to the intermittent tingling/numbness of his rt hand no sob the rib pain is "ok" but still difficult to move PE lung--bilateral bs with slight decrease in the rt base. chest wall--no ecch on the back or the chest decrease in the rt clavicle swelling vss eating discussed with Dr. Baptiste IMP steady progress will add norco to try to decrease the use of the morphine will monitor the tylenol intake discontinue the motrin ot/pt cont with the lovenox and the pud proph overall improving awaiting decision if surgery will be needed on the clavicle discussed with his and the patient thank you time 14 minutes - Plan Plan:: This is the progress note for February 06, 2018. The patient had a good night. Today he is more talkative and is smiling and joking his is at the bedside. PE- vss. lungs--good breath sounds in the bases imp--- physical therapy was in the room during my visit we discussed that he has improved in his ability to move --getting out of bed is the worst. we will look into having a better chair for home to make it easier to get up and about He and his seem good with this. THe nursing staff feel that he has made great progress--ambulating well PLAN-- 1-discontinue the morphine and the iv 2-shower and shave 3- will look into getting a better chair with a lift 4-discontinue the oxygen to keep the sat greater than 89% 4-will reevaluate this afternoon -- if all is in place and he is doing well -- home Thank you Dr. Ortega
[2018-02-06] MEDS: Acetaminophen/HYDROcodone 325-10 MG Tab PO PRN ×2 (10:40→17:09)
[2018-02-07] MEDS: Acetaminophen/HYDROcodone 325-10 MG Tab PO PRN ×2 (05:10→14:04)
[2018-02-07] MEDS: Enoxaparin 30 MG/0.3 ML Syringe SUBCUT SCH (05:10)
--- NOTE | 2018-02-07 08:41 | PCM.PN ---
- General Info Date of Service: 02/07/18 Admission Dx/Problem (Free Text): multiple rib fractures t Functional Status: Reports: Pain Controlled, Tolerating Diet, Ambulating, Incentive Spirometry - Patient Data Vitals - Most Recent: Last Vital Signs Temp 98.1 F 02/07/18 05:12 Pulse 54 L 02/07/18 05:12 Resp 16 02/07/18 05:12 BP 116/69 02/07/18 05:12 Pulse Ox 92 L 02/07/18 05:12 Weight - Most Recent: 226 lb 1.6 oz I&O - Last 24 Hours: Intake & Output 02/06/18 02/07/18 02/07/18 22:59 06:59 14:59 Intake Total 1120 300 Output Total 1300 Balance 1120 -1000 Med Orders - Current: Current Medications Acetaminophen (Tylenol) 325 mg PO Q4H PRN PRN Reason: Pain Last Admin: 02/06/18 20:38 Dose: 325 mg Hydrocodone Bitart/Acetaminophen ([place] 325-10 Mg) 1 - 2 tab PO Q6H PRN PRN Reason: Pain Last Admin: 02/07/18 05:10 Dose: 2 tab Enoxaparin Sodium (Lovenox) 30 mg SUBCUT Q12H [facility] Last Admin: 02/07/18 05:10 Dose: 30 mg Naloxone HCl (Narcan) 0.4 mg IVPUSH ASDIRECTED PRN PRN Reason: Oversedation Ondansetron HCl (Zofran) 4 mg IVPUSH Q8H PRN PRN Reason: N/V Pantoprazole Sodium (Protonix) 40 mg PO DAILY [facility] Last Admin: 02/06/18 09:08 Dose: 40 mg Discontinued Medications Acetaminophen (Tylenol) 650 mg PO Q6H PRN PRN Reason: Pain Last Admin: 02/04/18 14:45 Dose: 650 mg Acetaminophen (Tylenol) 650 mg PO Q6H PRN PRN Reason: Pain Hydrocodone Bitart/Acetaminophen ([place] 325-10 Mg) 2 tab PO Q6H PRN PRN Reason: Pain Hydromorphone HCl (Dilaudid) 1 mg IVPUSH ONETIME STA Stop: 02/03/18 12:59 Last Admin: 02/03/18 13:11 Dose: 1 mg Hydromorphone HCl (Dilaudid Plaster Applicator 6 Mg In Ns 30 Ml) 6 mg IV ASDIRECTED PRN; Protocol PRN Reason: Pain (severe 7-10) Sodium Chloride (Normal Saline) 1,000 mls @ 150 mls/hr IV ASDIRECTED [facility] Last Admin: 02/03/18 12:12 Dose: 150 mls/hr Sodium Chloride (Normal Saline) 1,000 mls @ 50 mls/hr IV ASDIRECTED [facility] Last Admin: 02/04/18 04:06 Dose: 50 mls/hr Ondansetron HCl 4 mg/ Sodium (Chloride) 52 mls @ 100 mls/hr IV Q8H PRN PRN Reason: Nausea Sodium Chloride (Normal Saline) 1,000 mls @ 20 mls/hr IV ASDIRECTED [facility] Last Admin: 02/05/18 08:58 Dose: 20 mls/hr Ibuprofen (Motrin) 600 mg PO Q8H PRN PRN Reason: Pain Ibuprofen (Motrin) 600 mg PO Q8H [facility] Last Admin: 02/05/18 04:17 Dose: 600 mg Iopamidol (Isovue-300 (61%)) 100 ml IVPUSH ONETIME ONE Stop: 02/03/18 11:52 Last Admin: 02/03/18 12:06 Dose: 100 ml Morphine Sulfate (Morphine Plaster Applicator 30 Mg In 30 Ml) 30 mg IV DAILY PRN; Protocol PRN Reason: Pain Last Admin: 02/05/18 21:54 Dose: 30 mg Sodium Chloride (Saline Flush) 10 ml FLUSH ONETIME PRN PRN Reason: IV FLUSH Last Admin: 02/03/18 12:06 Dose: 10 ml - Problem List Review Problem List Initiated/Reviewed/Updated: Yes - Assessment Assessment:: MR. Daley had a better night although most of his complaint is related to the intermittent tingling/numbness of his rt hand no sob the rib pain is "ok" but still difficult to move PE lung--bilateral bs with slight decrease in the rt base. chest wall--no ecch on the back or the chest decrease in the rt clavicle swelling vss eating discussed with Dr. Baptiste IMP steady progress will add norco to try to decrease the use of the morphine will monitor the tylenol intake discontinue the motrin ot/pt cont with the lovenox and the pud proph overall improving awaiting decision if surgery will be needed on the clavicle discussed with his and the patient thank you time 14 minute - Plan Plan:: This is the progress note for February 06, 2018. The patient had a good night. Today he is more talkative and is smiling and joking his is at the bedside. PE- vss. lungs--good breath sounds in the bases imp--- physical therapy was in the room during my visit we discussed that he has improved in his ability to move --getting out of bed is the worst. we will look into having a better chair for home to make it easier to get up and about He and his seem good with this. THe nursing staff feel that he has made great progress--ambulating well PLAN-- 1-discontinue the morphine and the iv 2-shower and shave 3- will look into getting a better chair with a lift 4-discontinue the oxygen to keep the sat greater than 89% 4-will reevaluate this afternoon -- if all is in place and he is doing well -- home Thank you Dr. Ortega
--- NOTE | 2018-02-07 08:44 | PCM.DCSUM1 ---
Discharge Summary - Hospital Course Diagnosis: Stroke: No - Discharge Data Discharge Date: 02/07/18 Discharge Disposition: Home, Self-Care 01 Condition: Good - Patient Summary/Data Consults: Consultations 02/03/18 16:58 Consult to Physician [CONS] Routine 02/05/18 08:54 OT Evaluation and Treatment [CONS] Routine 02/05/18 08:55 PT Evaluation and Treatment [CONS] Routine - Patient Instructions Diet: Heart Healthy Diet Activity: No Lifting Over 10 Pounds Driving: Do Not Drive Showering/Bathing: May Shower - Discharge Plan *PRESCRIPTION DRUG MONITORING PROGRAM REVIEWED*: Not Applicable *COPY OF PRESCRIPTION DRUG MONITORING REPORT IN PATIENT YVONNE: Yes Home Medications: Home Meds . [No Known Home Meds] 02/03/18 [History] Forms: ED Department Discharge Referrals: PCP,None [Primary Care Provider] - - Discharge Summary/Plan Comment Discharge Summary/Plan Comment: We have been working on the discharge plan for several days. He will require a hospital bed. He needs to be out of bed as much as possible. I stressed this to him - Patient Data Vitals - Most Recent: Last Vital Signs Temp 98.1 F 02/07/18 05:12 Pulse 54 L 02/07/18 05:12 Resp 16 02/07/18 05:12 BP 116/69 02/07/18 05:12 Pulse Ox 92 L 02/07/18 05:12 Weight - Most Recent: 226 lb 1.6 oz I&O - Last 24 hours: Intake & Output 02/06/18 02/07/18 02/07/18 22:59 06:59 14:59 Intake Total 1120 300 Output Total 1300 Balance 1120 -1000 Med Orders - Current: Current Medications Acetaminophen (Tylenol) 325 mg PO Q4H PRN PRN Reason: Pain Last Admin: 02/06/18 20:38 Dose: 325 mg Hydrocodone Bitart/Acetaminophen ([place] 325-10 Mg) 1 - 2 tab PO Q6H PRN PRN Reason: Pain Last Admin: 02/07/18 05:10 Dose: 2 tab Enoxaparin Sodium (Lovenox) 30 mg SUBCUT Q12H KRISTOFER Last Admin: 02/07/18 05:10 Dose: 30 mg Naloxone HCl (Narcan) 0.4 mg IVPUSH ASDIRECTED PRN PRN Reason: Oversedation Ondansetron HCl (Zofran) 4 mg IVPUSH Q8H PRN PRN Reason: N/V Pantoprazole Sodium (Protonix) 40 mg PO DAILY [facility] Last Admin: 02/06/18 09:08 Dose: 40 mg Discontinued Medications Acetaminophen (Tylenol) 650 mg PO Q6H PRN PRN Reason: Pain Last Admin: 02/04/18 14:45 Dose: 650 mg Acetaminophen (Tylenol) 650 mg PO Q6H PRN PRN Reason: Pain Hydrocodone Bitart/Acetaminophen ([place] 325-10 Mg) 2 tab PO Q6H PRN PRN Reason: Pain Hydromorphone HCl (Dilaudid) 1 mg IVPUSH ONETIME STA Stop: 02/03/18 12:59 Last Admin: 02/03/18 13:11 Dose: 1 mg Hydromorphone HCl (Dilaudid Medical Orderly 6 Mg In Ns 30 Ml) 6 mg IV ASDIRECTED PRN; Protocol PRN Reason: Pain (severe 7-10) Sodium Chloride (Normal Saline) 1,000 mls @ 150 mls/hr IV ASDIRECTED [facility] Last Admin: 02/03/18 12:12 Dose: 150 mls/hr Sodium Chloride (Normal Saline) 1,000 mls @ 50 mls/hr IV ASDIRECTED [facility] Last Admin: 02/04/18 04:06 Dose: 50 mls/hr Ondansetron HCl 4 mg/ Sodium (Chloride) 52 mls @ 100 mls/hr IV Q8H PRN PRN Reason: Nausea Sodium Chloride (Normal Saline) 1,000 mls @ 20 mls/hr IV ASDIRECTED [facility] Last Admin: 02/05/18 08:58 Dose: 20 mls/hr Ibuprofen (Motrin) 600 mg PO Q8H PRN PRN Reason: Pain Ibuprofen (Motrin) 600 mg PO Q8H [facility] Last Admin: 02/05/18 04:17 Dose: 600 mg Iopamidol (Isovue-300 (61%)) 100 ml IVPUSH ONETIME ONE Stop: 02/03/18 11:52 Last Admin: 02/03/18 12:06 Dose: 100 ml Morphine Sulfate (Morphine Medical Orderly 30 Mg In 30 Ml) 30 mg IV DAILY PRN; Protocol PRN Reason: Pain Last Admin: 02/05/18 21:54 Dose: 30 mg Sodium Chloride (Saline Flush) 10 ml FLUSH ONETIME PRN PRN Reason: IV FLUSH Last Admin: 02/03/18 12:06 Dose: 10 ml
[2018-02-07] MEDS ORDERED: Magnesium Citrate Solution 296 ML Bottle PO ONE (08:59)
[2018-02-07] MEDS: Pantoprazole 40 MG Tab.CR PO SCH (09:13)
--- NOTE | 2018-02-07 12:56 | PCM.CONS ---
H&P History of Present Illness - General Date of Service: 02/05/18 Admit Problem/Dx: Admission Diagnosis/Problem Admission Diagnosis/Problem Fracture of multiple ribs Source of Information: Patient, Provider History Limitations: Reports: No Limitations - History of Present Illness Initial Comments - Free Text/Narative: This is a 52 year old left hand dominant male who came to the ED as a trauma after being bucked off his horse. Patient was seen in the ED and found to have a clavicle fracture along with right sided rib fractures and transverse process fractures. He denies previous fracture or injury to the right clavicle. He had no loss of consciousness. He denies numbness or tingling and that his pain is a lot in his back and ribs. He has been admitted for pain control and was finally able to ambulate some today. Right Shoulder Pain Score (Numeric/FACES): 6 - Related Data Allergies/Adverse Reactions: Allergies Allergy/AdvReac Type Severity Reaction Status Date / Time No Known Allergies Allergy Verified 02/03/18 14:58 Home Medications: Home Meds Acetaminophen/HYDROcodone [[place] 325-5 MG] 1 tab PO Q6H PRN #20 tablet 02/07/18 [Rx] Past Medical History Cardiovascular History: Reports: Blood Clots/VTE/DVT Endocrine/Metabolic History: Reports: Obesity/BMI 30+ - Past Surgical History GI Surgical History: Reports: Colonoscopy Musculoskeletal Surgical History: Reports: Arthroscopic Knee Social & Family History - Tobacco Use Smoking Status *Q: Never Smoker Years of Tobacco use: 30 Packs/Tins Daily: 0.2 - Caffeine Use Caffeine Use: Reports: Coffee - Alcohol Use Date of Last Drink: 02/02/18 - Recreational Drug Use Recreational Drug Use: Yes - Living Situation & Occupation Living situation: Reports: , with Spouse, with Family (1 son) Occupation: Employed ([employer] in [employer]) H&P Review of Systems - Review of Systems: Review Of Systems: ROS reveals no pertinent complaints other than HPI. Exam - Exam Exam: See Below - Vital Signs Vital Signs: Last Vital Signs Temp 36.9 C 02/07/18 08:20 Pulse 51 L 02/07/18 08:20 Resp 22 H 02/07/18 08:20 BP 128/67 02/07/18 08:20 Pulse Ox 94 L 02/07/18 08:20 Weight: 102.557 kg - Exam Physical Exam Comments:: RUE: swelling and ecchymosis noted about the right clavicle, no skin tenting or blanching, able move elbow with no pain, moving all fingers, neurovascularly intact to the median, axillary, ulnar and radial nerve distributions, 2+ distal radial pulses LUE: no trauma and no pain BLE: patient able to ambulate with only pain in his back and rib region otherwise unremarkable - Patient Data Result Diagrams: 02/04/18 06:35 02/03/18 12:25 Consult PN Assessment/Plan Problem List Initiated/Reviewed/Updated: Yes Plan: A: Comminuted right midshaft clavicle fracture P: At this time there are only supine clavicle fractures I want to order upright radiographs looking for displacement. These were obtained and it does show shortening but no appreciable displacement. At this time I discussed both surgical and nonsurgical options but at this point would try non-surgical as it shows little displacement and is highly comminuted. We will keep the patient in a loose sling with no motion to the right shoulder at this time and will see the patient in 2 weeks in clinic for repeat radiographs.
--- NOTE | 2018-02-08 07:01 | DISCH ---
ADMISSION DATE: 02/03/2018 DISCHARGE DATE: 02/07/2018 REASON FOR ADMISSION: Trauma. INJURIES IDENTIFIED: 1. Right comminuted clavicle fracture. 2. Six rib fractures on the right with several that are in two positions but all are nondisplaced. 3. Transverse process fractures on the right of T5, T6, T7 with questionable T3. 4. Mild pulmonary contusion. BRIEF HISTORY: This is a very healthy 52-year-old male who was bucked off a new horse. He landed on his right side with immediate pain. He was subsequently transferred here for evaluation and the above injuries were identified. He also remained hemodynamically stable. Consultation was made with our orthopedic colleagues and they felt that nonoperative therapy would be indicated for this particular injury. A sling was subsequently placed. Over the course of the next several days, no additional injuries were identified with repeated examinations. The biggest issue was activity and pain control. We were able to change to p.o. [place] on a p.r.n. basis for adequate control. The oxygen saturations remained good on room air. Numerous conversations were held with the family as with the patient that there was absolute need that he needs to be out of bed and walking as much as possible. Clearly, there was some difficulty to get out of bed, so we have taken an effort to go ahead and have a hospital bed at home so that he can get up and down with improvement. As far as his GI, he was having a lot of gas, and on my exam this morning, he did have positive bowel sounds, but we are going to go ahead and give him half a bottle of mag citrate prior to discharge to hopefully solve this issue. The discharge activity is up and about with no heavy lifting as directed by the orthopedic surgeons. Once the orthopedics has cleared him for activity from the clavicle, he is okay from the rib fractures. DIET: Regular diet. MEDICATIONS: We are going to send him home on 20 tablets of [place] with no refills. I clearly explained this to him. I also discussed this with his yesterday that he should use these intermittently. He is now 5 full days out from the injury and this should suffice, such that there will be no refills. FOLLOWUP VISIT: We will have him see Dr. Sierra here in the [facility] in 1 week, sooner if there are any problems. DISCHARGE PROGNOSIS: Good if he follows orders and is able to be up and about as we have encouraged him to do. FINAL DIAGNOSIS: DISCHARGE MEDICATIONS: ACTIVITY: FOLLOW-UP: CONDITION ON DISCHARGE: MATIAS /[id number]
--- NOTE | 2018-02-08 09:21 | CR ---
Right clavicle: Three views of the right clavicle were obtained. Comminuted right clavicle fracture is seen with mild displacement and superior apex angulation. Acromioclavicular joint appears aligned. Glenohumeral joint is within normal limits. Fractures are seen within the third, fourth and fifth ribs. Impression: 1. Mildly displaced and angulated right clavicle fracture. 2. Three rib fractures are identified on the right side. Diagnostic code #3 I agree with preliminary report from [facility], finalized at 02/05/18, 1:37 PM Central Time
--- NOTE | 2018-02-08 09:22 | CR ---
Chest: Portable view of the chest was obtained. Comparison: Prior chest x-ray of 02/03/18. Heart size and mediastinum are within normal limits for portable technique. Lungs shows minimal atelectasis within the left base. Lungs otherwise are clear. Comminuted and minimally displaced right clavicle fracture is again noted. Previous rib fractures seen on CT exam are poorly identified on chest x-ray. Impression: 1. Minimal left basilar atelectasis. 2. Stable appearing right clavicle fracture. Diagnostic code #2
== END 2018-02-07 15:15 | disposition home or self-care (01) | DRG 342 ==
LOC: JD.ED 11:31 → JD.MS 14:12 → UNDOADMIN 14:15 → JD.MS 14:15
PROVIDERS: ADMIT Surgery; ATTEND Surgery
DX: S42.001A Fracture of unspecified part of right clavicle, initial encounter for closed fracture (principal); S22.41XA Multiple fractures of ribs, right side, initial encounter for closed fracture; S22.059A Unspecified fracture of T5-T6 vertebra, initial encounter for closed fracture; S22.069A Unspecified fracture of T7-T8 vertebra, initial encounter for closed fracture; S22.039A Unspecified fracture of third thoracic vertebra, initial encounter for closed fracture; V80.010A Animal-rider injured by fall from or being thrown from horse in noncollision accident, initial encounter; S27.329A Contusion of lung, unspecified, initial encounter; Z86.718 Personal history of other venous thrombosis and embolism; F17.220 Nicotine dependence, chewing tobacco, uncomplicated; E66.9 Obesity, unspecified; Z68.33 Body mass index [BMI] 33.0-33.9, adult
CPT/HCPCS: 36415; 71045; 71045-26; 71260; 71260-26; 73000-26-RT; 73000-RT; 73030-26-RT; 73030-RT; 80053; 85007; 85025; 85027; 85610; 85730; 94762; 96361; 96374; 97116-GP; 97162-GP; 97167-GO; 97530-GO; 97530-GP; 97535-GO; 99285; 99285-25; A9270-GY; J1170; J1650; J2274; J7040; J7050; Q9967

== ENCOUNTER 2018-02-25 20:51 | Emergency (ER) | payer BC ==
--- NOTE | 2018-02-26 00:02 | EDM.PDOC ---
ED HPI GENERAL MEDICAL PROBLEM - General Chief Complaint: General Stated Complaint: RIGHT SIDE PAIN Time Seen by Provider: 02/25/18 23:29 Source of Information: Reports: Patient, Family (), Old Records (ED 02/03/18 , H&P 02/03/18, D/C summary 02/07/18) History Limitations: Reports: No Limitations - History of Present Illness INITIAL COMMENTS - FREE TEXT/NARRATIVE: The patient states that he was bucked off a horse on 02/03/2018, sustaining a right clavicle and multiple rib fractures. He was admitted to the hospital under the trauma surgeon Dr. Charisse Ortega, and discharged home on 02/07/2018. He states that he has been walking about 1/4 mile per day since discharge. He states that he developed lower right back pain that radiates to the right side of his abdomen around 19:00 tonight. It is sharp, and ovaries present even if the patient remains still, but occasionally gets worse. The exacerbation is not associated with movement, although is worse if he takes a deep breath. No urinary symptoms or hematuria. No recent fever, chills, constipation, or diarrhea. No prior similar symptoms. The patient does not have a PCP. right lower rib area/right flank region Pain Score (Numeric/FACES): 3 - Related Data Allergies Allergy/AdvReac Type Severity Reaction Status Date / Time No Known Allergies Allergy Verified 02/25/18 21:01 Home Meds: Home Meds Acetaminophen/HYDROcodone [[place] 325-5 MG] 1 tab PO Q6H PRN #20 tablet 02/07/18 [Rx] Ibuprofen 100 mg PO ASDIRECTED PRN 02/25/18 [History] Rivaroxaban [Xarelto] 1 tab PO Q12H #41 tablet 02/26/18 [Rx] Past Medical History Cardiovascular History: Reports: Blood Clots/VTE/DVT (RLE around 2008, after Rt knee arthroscopy) Musculoskeletal History: Reports: Fracture (right clavicle, multiple right ribs) Endocrine/Metabolic History: Reports: Obesity/BMI 30+ - Past Surgical History GI Surgical History: Reports: Colonoscopy Musculoskeletal Surgical History: Reports: Arthroscopic Knee (right, around 2008 ) Social & Family History - Family History Family Medical History: Noncontributory - Tobacco Use Smoking Status *Q: Never Smoker - Caffeine Use Caffeine Use: Reports: Coffee - Alcohol Use Alcohol Use History: Yes Alcohol Use Frequency: Socially - Recreational Drug Use Recreational Drug Use: No - Living Situation & Occupation Living situation: Reports: , with Spouse, with Family (Son) Occupation: Employed ([employer]) ED ROS GENERAL - Review of Systems Review Of Systems: ROS reveals no pertinent complaints other than HPI. ED EXAM, GENERAL - Physical Exam Exam: See Below Exam Limited By: No Limitations General Appearance: Alert, WD/WN, Mild Distress (appears uncomfortable) Eye Exam: Bilateral Eye: EOMI, Normal Inspection Ears: Normal External Exam, Hearing Grossly Normal Nose: Normal Inspection, No Blood Throat/Mouth: Normal Inspection, Normal Lips, Normal Voice, No Airway Compromise Head: Atraumatic, Normocephalic Neck: Normal Inspection, Full Range of Motion Respiratory/Chest: No Respiratory Distress, Lungs Clear, Normal Breath Sounds, No Accessory Muscle Use Cardiovascular: Normal Peripheral Pulses, Regular Rate, Rhythm, No Edema, No Gallop, No JVD, No Murmur, No Rub Peripheral Pulses: 4+: Radial (L), Radial (R) GI/Abdominal: Normal Bowel Sounds, Soft, Non-Tender, No Organomegaly, No Distention, No Abnormal Bruit, No Mass (Male) Exam: Deferred Rectal (Males) Exam: Deferred Back Exam: Normal Inspection, Full Range of Motion. No: CVA Tenderness (L), CVA Tenderness (R) Extremities: Normal Inspection, Normal Range of Motion, No Pedal Edema, Normal Capillary Refill Neurological: Alert, Oriented, Normal Cognition, No Motor/Sensory Deficits Psychiatric: Normal Affect Skin Exam: Warm, Dry, Intact, Normal Color, No Rash Course - Vital Signs Last Recorded V/S: Last Vital Signs Temp 36.4 C 02/25/18 20:57 Pulse 62 02/25/18 20:57 Resp 18 02/25/18 20:57 BP 125/81 02/25/18 20:57 Pulse Ox 100 02/25/18 20:57 - Orders/Labs/Meds Labs: Laboratory Tests 02/25/18 02/25/18 02/25/18 Range/Units 22:44 23:25 23:25 WBC Cancelled Corrected WBC Cancelled RBC Cancelled Hgb Cancelled Hct Cancelled MCV Cancelled MCH Cancelled MCHC Cancelled RDW Std Deviation Cancelled Plt Count Cancelled MPV Cancelled Neut % (Auto) Cancelled Lymph % (Auto) Cancelled [place] % (Auto) Cancelled Eos % (Auto) Cancelled Baso % (Auto) Cancelled Neut # (Auto) Cancelled Lymph # (Auto) Cancelled [place] # (Auto) Cancelled Eos # (Auto) Cancelled Baso # (Auto) Cancelled Neutrophils % (Manual) (40-60) % Band Neutrophils % (0-10) % Lymphocytes % (Manual) (20-40) % Atypical Lymphs % % Monocytes % (Manual) (2-10) % Eosinophils % (Manual) (0.8-7.0) % Basophils % (Manual) (0.2-1.2) Manual Slide Review Cancelled Platelet Estimate Plt Morphology Comment Anisocytosis Microcytosis Macrocytosis RBC Morph Comment PT (9.5-12.1) SECONDS INR APTT (24-31) SECONDS D-Dimer, Quantitative 3.86 H (0.19-0.50) mg/L Sodium (136-145) mEq/L Potassium (3.5-5.1) mEq/L Chloride (98-107) mEq/L Carbon Dioxide (21-32) mEq/L Anion Gap (5-15) BUN (7-18) mg/dL Creatinine (0.7-1.3) mg/dL Est Cr Clr Drug Dosing mL/min Estimated GFR (MDRD) (>60) mL/min BUN/Creatinine Ratio (14-18) Glucose (74-106) mg/dL Calcium (8.5-10.1) mg/dL Total Bilirubin (0.2-1.0) mg/dL AST (15-37) U/L ALT (16-63) U/L Alkaline Phosphatase (46-116) U/L Total Protein (6.4-8.2) g/dl Albumin (3.4-5.0) g/dl Globulin gm/dL Albumin/Globulin Ratio (1-2) Urine Color Yellow (Yellow) Urine Appearance Clear (Clear) Urine pH 6.5 (5.0-8.0) Ur Specific [place] 1.020 (1.005-1.030) Urine Protein Negative (Negative) Urine Glucose (UA) Negative (Negative) Urine Ketones Negative (Negative) Urine Occult Blood Negative (Negative) Urine Nitrite Negative (Negative) Urine Bilirubin Negative (Negative) Urine Urobilinogen 0.2 (0.2-1.0) Ur Leukocyte Esterase Negative (Negative) Urine RBC 0-5 (0-5) /hpf Urine WBC 0-5 (0-5) /hpf Ur Epithelial Cells 0-5 (0-5) /hpf Urine Bacteria Not seen (FEW) /hpf Urine Mucus Moderate H (FEW) /hpf 02/25/18 02/25/18 02/25/18 Range/Units 23:25 23:25 23:25 WBC 5.62 Corrected WBC RBC 4.97 Hgb 15.4 Hct 44.1 MCV 88.7 MCH 31.0 MCHC 34.9 RDW Std Deviation 42.7 Plt Count 225 MPV 9.4 Neut % (Auto) Lymph % (Auto) [place] % (Auto) Eos % (Auto) Baso % (Auto) Neut # (Auto) Lymph # (Auto) [place] # (Auto) Eos # (Auto) Baso # (Auto) Neutrophils % (Manual) 51 (40-60) % Band Neutrophils % 0 (0-10) % Lymphocytes % (Manual) 33 (20-40) % Atypical Lymphs % 0 % Monocytes % (Manual) 12 H (2-10) % Eosinophils % (Manual) 2 (0.8-7.0) % Basophils % (Manual) 2 H (0.2-1.2) Manual Slide Review Platelet Estimate Adequate Plt Morphology Comment Normal Anisocytosis 1+ slight Microcytosis 1+ slight Macrocytosis 1+ slight RBC Morph Comment Abnormal PT 10.4 (9.5-12.1) SECONDS INR 0.95 APTT 33 H (24-31) SECONDS D-Dimer, Quantitative (0.19-0.50) mg/L Sodium 139 (136-145) mEq/L Potassium 3.8 (3.5-5.1) mEq/L Chloride 102 (98-107) mEq/L Carbon Dioxide 28 (21-32) mEq/L Anion Gap 12.8 (5-15) BUN 14 (7-18) mg/dL Creatinine 1.0 (0.7-1.3) mg/dL Est Cr Clr Drug Dosing 95.44 mL/min Estimated GFR (MDRD) > 60 (>60) mL/min BUN/Creatinine Ratio 14.0 (14-18) Glucose 99 (74-106) mg/dL Calcium 8.9 (8.5-10.1) mg/dL Total Bilirubin 0.7 (0.2-1.0) mg/dL AST 21 (15-37) U/L ALT 28 (16-63) U/L Alkaline Phosphatase 160 H (46-116) U/L Total Protein 7.8 (6.4-8.2) g/dl Albumin 3.8 (3.4-5.0) g/dl Globulin 4.0 gm/dL Albumin/Globulin Ratio 1.0 (1-2) Urine Color (Yellow) Urine Appearance (Clear) Urine pH (5.0-8.0) Ur Specific [place] (1.005-1.030) Urine Protein (Negative) Urine Glucose (UA) (Negative) Urine Ketones (Negative) Urine Occult Blood (Negative) Urine Nitrite (Negative) Urine Bilirubin (Negative) Urine Urobilinogen (0.2-1.0) Ur Leukocyte Esterase (Negative) Urine RBC (0-5) /hpf Urine WBC (0-5) /hpf Ur Epithelial Cells (0-5) /hpf Urine Bacteria (FEW) /hpf Urine Mucus (FEW) /hpf Meds: Medications Discontinued Medications Generic Name Dose Route Start Last Admin Trade Name Freq PRN Reason Stop Dose Admin Enoxaparin Sodium 100 mg 02/26/18 01:12 02/26/18 01:19 Lovenox SUBCUT 02/26/18 01:13 100 mg ONETIME ONE Administration Sodium Chloride 1,000 mls @ 150 mls/hr 02/26/18 00:15 02/26/18 00:24 Normal Saline IV 150 mls/hr ASDIRECTED KRISTOFER Administration Iopamidol 100 ml 02/26/18 00:22 02/26/18 00:54 Isovue-370 (76%) IVPUSH 02/26/18 00:23 100 ml ONETIME ONE Administration Rivaroxaban 15 mg 02/26/18 01:53 02/26/18 02:09 Xarelto PO 02/26/18 01:54 15 mg ONETIME STA Administration - Re-Assessments/Exams Free Text/Narrative Re-Assessment/Exam: 02/26/18 00:01 2-view chest radiograph reviewed. Cardiac silhouette appears to be within normal limits. No pulmonary vascular congestion. There appears to be a right sided pleural effusion in the posterior sulcus. No focal infiltrate. No pneumothorax. Formal read per the Radiologist pending. 02/26/18 01:13 CT angiogram of the chest is read by [facility] as "There are a few segmental sized pulmonary emboli. Minimal clot burden. Small right pleural effusion. Moderate amount of right base atelectasis." Based on the above findings, I have ordered Lovenox 100 mg SQ. 02/26/18 01:14 CT of the abdomen and pelvis without contrast is read by [facility] as "No acute findings in the abdomen/pelvis." 02/26/18 01:45 The above situation was discussed with the patient and his . The patient is adequately anticoagulated at this time, having received Lovenox. I will send the patient home with 15 mg of Xarelto that he can take this morning with breakfast, along with a prescription for 15 mg Q12h with food x 21 days. The patient will be provided with a coupon for a free 30 day trial offer. In the meantime, the patient should follow-up with his PCP, Romeo Mason, to determine what long-term anticoagulant the patient's insurance will cover, and proceed from there. The patient has been advised that he cannot take ibuprofen or naproxen with Xarelto. Departure - Departure Time of Disposition: 01:52 Disposition: Home, Self-Care 01 Condition: Good Clinical Impression: Pulmonary embolus, Pleural effusion on right - Discharge Information *PRESCRIPTION DRUG MONITORING PROGRAM REVIEWED*: Not Applicable *COPY OF PRESCRIPTION DRUG MONITORING REPORT IN PATIENT YVONNE: Not Applicable Prescriptions: Rivaroxaban [Xarelto] 1 tab PO Q12H #41 tablet Instructions: Pulmonary Embolism, Pleural Effusion Referrals: Romeo Mason PA-C [Primary Care Provider] - Forms: ED Department Discharge Additional Instructions: You were seen in the emergency room for lower right back pain. Workup in the ER included blood work, a urinalysis, a chest x-ray, a CT angiogram of your chest, and a CT can of your abdomen and pelvis. Your workup found that you have a pulmonary embolus (blood clot in your lung), as well as a small pleural effusion, which is likely responsible for your pain. You were given an injection of the anticoagulant Lovenox. You have been given a dose of the anticoagulant Xarelto, to be taken this morning, with breakfast. A prescription for Xarelto has been sent to the [facility] pharmacy, [address], located [place] south and [place] [address] from [facility]. Use the coupon provided to get a free 30 day trial of Xarelto. Start taking the prescribed Xarelto this evening, with food, as directed. The aware that when taking Xarelto, you cannot also take an NSAID, such as ibuprofen or Aleve. For pain, you may take Tylenol or [place]. Follow-up with your PCP, Romeo Mason, this week, to determine what long-term anticoagulate you should be on. If any other problems, please do not hesitate to return to the ER.
[2018-02-26] MEDS ORDERED: Sodium Chloride 0.9% 1,000 ML IV SCH (00:15)
[2018-02-26] MEDS ORDERED: Iopamidol 755 Mg/ML 100 ML Bottle IVPUSH ONE (00:22)
[2018-02-26] MEDS ORDERED: Enoxaparin 100 MG/1 ML Syringe SUBCUT ONE (01:12)
[2018-02-26] MEDS ORDERED: Rivaroxaban 10 MG Tab PO STA (01:53)
--- NOTE | 2018-02-26 08:06 | CR ---
Chest: Two views of the chest were obtained. Comparison: Prior chest x-ray of 02/13/18. Right clavicle fracture is again noted. Heart size and mediastinum are normal. Lateral view shows increased density within the right lung base most likely due to combination of atelectasis and pleural effusion. Mild left basilar atelectasis is seen. Lungs otherwise are clear. Heart size and mediastinum are within normal limits. Impression: 1. Probable right sided pleural effusion and bibasilar atelectasis. 2. Stable right clavicle fracture. Diagnostic code #3
--- NOTE | 2018-02-26 08:06 | CT ---
CT abdomen and pelvis Technique: Multiple axial sections were obtained from above the dome of the diaphragm inferiorly to the pubic symphysis. Intravenous contrast was utilized. No oral contrast has been given. Delayed images were obtained through the bladder. Findings: Small right sided pleural effusion is seen as well as right basilar atelectasis. Slight parenchymal density seen within the lingula most likely due to additional atelectasis. Liver and spleen show no focal parenchymal abnormality. Adrenal glands show no nodule. Kidneys show symmetric contrast enhancement without hydronephrosis. No renal mass is appreciated. Pancreas appears within normal limits. Gallbladder contains no calcified gallstones. Aorta shows atherosclerotic calcification without aneurysm. No retroperitoneal adenopathy or mesenteric abnormalities are seen. No pelvic mass or adenopathy is seen. Appendix is seen and is normal in size. Delayed images show contrast within the distal ureters and within the bladder. Bone window settings were reviewed which show mild degenerative change within the lower lumbar spine. Impression: 1. Small right sided pleural effusion with right basilar atelectasis and minimal lingular atelectasis. 2. Nothing acute is otherwise seen on CT study of the abdomen and pelvis. Diagnostic code #2 I agree with preliminary report issued by [employer] ([facility] preliminary report dictated on 02/26/18, 2:11 AM Central Time)
--- NOTE | 2018-02-26 08:10 | CT ---
CT chest Technique: Multiple axial sections through the chest were obtained. Intravenous contrast was utilized. Study has been performed as a pulmonary angiogram protocol. Comparison: Previous chest CT of 02/03/18. Findings: Filling defect seen within the distal right main pulmonary artery extending into a segmental branch within the right upper lung. No left-sided pulmonary embolism is seen. Mediastinum and hilar regions show no adenopathy or mass. No pericardial thickening is seen. Small right sided pleural effusion is seen. Consolidation seen within the portion of the right lung base most likely due to prominent atelectasis. Minimal lingular atelectasis is seen as well as minimal atelectasis within the left base. Upper lungs are clear. Bone window settings were reviewed which show a right-sided clavicle fracture. Fracture seen on prior chest CT within the right chest again noted. Impression: 1. Small right sided pleural effusion as well as consolidation within a portion of the right lung base most likely due to prominent atelectasis. Lesser left-sided atelectasis is seen. 2. Mild pulmonary emboli within the distal right main pulmonary artery extending into a segmental branch. 3. Stable right-sided rib fractures and right clavicle fracture. Diagnostic code #5 Agree with preliminary report issued by [employer] ([facility] preliminary report dictated on 02/26/18, 2:08 AM Central Time)
== END 2018-02-26 02:27 | disposition home or self-care (01) ==
LOC: JD.ED 20:51
DX: I26.99 Other pulmonary embolism without acute cor pulmonale (principal); J90 Pleural effusion, not elsewhere classified; Z79.01 Long term (current) use of anticoagulants
CPT/HCPCS: 36415; 71046; 71275; 74176; 80053; 81001; 85007; 85027; 85379; 85610; 85730; 96360; 96361; 96372; 99284; A9270; J1650; J7040; Q9967; 85025